=== PATIENT | female | born 1975 | race African-American/Black ===

== ENCOUNTER → 2019-11-05 | Outpatient (CLI) | payer BC, OTHER | LOC: RAD 09:49 | PROVIDERS: ATTEND Nurse Practitioner | DX: S92.352A Displaced fracture of fifth metatarsal bone, left foot, initial encounter for closed fracture (principal); X58.XXXA Exposure to other specified factors, initial encounter; Y93.89 Activity, other specified; Y92.89 Other specified places as the place of occurrence of the external cause; Y99.8 Other external cause status ==